=== PATIENT | female | born 1935 | race Hispanic/Latino ===

== ENCOUNTER 2022-06-13 07:49 | Inpatient (IN) | payer OTHER ==
[~2022-06-13] VITALS: Ht 165.1 cm; Wt 101.2 kg
[2022-06-13 08:21] LABS: BASOPHILS % (AUTO) 0.7 % (0.0-5.0); EOSINOPHILS % (AUTO) 3.8 % (0.0-8.0); HEMATOCRIT 42.2 % (36-48); LYMPHOCYTES % (AUTO) 30.9 % (21.0-51.0); MEAN CORPUSCULAR HEMOGLOBIN 30.8 pg (27.0-33.0); MEAN CORPUSCULAR HGB CONC 33.2 g/dL (32.0-36.0); MONOCYTES % (AUTO) 5.7 % (3.0-13.0); NEUTROPHILS % (AUTO) 58.5 % (40.0-77.0); PLATELET COUNT (AUTO) 202 K/uL (130-400); RED BLOOD CELL COUNT(AUTO) 4.54 MIL/uL (4.00-5.50); RED CELL DISTRIBUTION WIDTH 13.2 % (11.0-15.5); WHITE BLOOD COUNT (AUTO) 8.1 K/uL (4.8-10.8)
[2022-06-13] MEDS ORDERED: NITROGLYCERIN 1GM OINT 1 INCH/1GM TD SCH ×2 (08:30→10:30)
[2022-06-13 08:37] LABS: ALBUMIN 3.4 g/dL (3.5-5.0); CREATININE 0.9 mg/dL (0.5-1.5); POTASSIUM 4.6 mmol/L (3.5-5.1); TOTAL PROTEIN, SERUM 7.4 g/dL (6.0-8.3)
[2022-06-13 08:38] LABS: LIPASE < 50 U/L (114-286)
[2022-06-13] MEDS ORDERED: ASPIRIN 325MG TAB PO SCH (10:30)
[2022-06-13 11:25] LABS: APPEARANCE,URINE CLEAR (CLEAR); BILIRUBIN,URINE NEGATIVE (NEGATIVE); COLOR,URINE COLORLESS (YELLOW); GLUCOSE, URINE (UA) NEGATIVE (NEGATIVE); KETONES,URINE NEGATIVE (NEGATIVE); LEUKOCYTE ESTERASE ,URINE NEGATIVE Leu/uL (NEGATIVE); NITRATE,URINE NEGATIVE (NEGATIVE); OCCULT BLOOD,URINE NEGATIVE (NEGATIVE); PROTEIN,URINE NEGATIVE (NEGATIVE); UROBILINOGEN,URINE 0.2 mg/dL (0.2-1.0)
[2022-06-13] MEDS ORDERED: NITROGLYCERIN 50MG/D5W 250ML 250 BOT IV SCH (18:30)
[2022-06-13] MEDS: METOPROLOL TARTRATE 25 MG TAB PO SCH (21:00)
[2022-06-13] MEDS ORDERED: HYDRALAZINE 20MG/ML VIAL IV PRN (22:00)
[2022-06-13] MEDS: ATORVASTATIN 20 MG TABLET PO SCH (22:28)
[2022-06-14] VITALS (28 sets, daily range): BP systolic 97–177; BP diastolic 50–88
[2022-06-14] MEDS ORDERED: KCL 20 MEQ ERTAB PO PRN
[2022-06-14] MEDS ORDERED: POTASSIUM CHLORIDE 20MEQ/100ML 100 ML IV PRN ×2
[2022-06-14] MEDS ORDERED: POTASSIUM CHLORIDE 10% ELIXIR 20 MEQ/15 ML UDCUP PO PRN
[2022-06-14] MEDS ORDERED: MAGNESIUM 2GM PREMIX 50ML 50 ML IV PRN
[2022-06-14] MEDS ORDERED: LIDOCAINE HCL-MPF 1% 2ML VIAL IV PRN ×2
[2022-06-14 04:36] LABS: BASOPHILS % (AUTO) 0.7 % (0.0-5.0); EOSINOPHILS % (AUTO) 3.3 % (0.0-8.0); HEMATOCRIT 41.8 % (36-48); MEAN CORPUSCULAR HEMOGLOBIN 31.2 pg (27.0-33.0); MEAN CORPUSCULAR VOLUME 94.6 fL (79-99); MONOCYTES % (AUTO) 6.8 % (3.0-13.0); NEUTROPHILS % (AUTO) 64.9 % (40.0-77.0); PLATELET COUNT (AUTO) 204 K/uL (130-400); RED BLOOD CELL COUNT(AUTO) 4.42 MIL/uL (4.00-5.50); RED CELL DISTRIBUTION WIDTH 13.3 % (11.0-15.5); WHITE BLOOD COUNT (AUTO) 8.7 K/uL (4.8-10.8)
[2022-06-14 04:49] LABS: CREATININE 0.9 mg/dL (0.5-1.5); POTASSIUM 4.1 mmol/L (3.5-5.1)
[2022-06-14 04:51] LABS: INR 0.94 (0.85-1.15); PROTHROMBIN TIME 10.3 SEC (9.6-11.6)
[2022-06-14 04:52] LABS: ALBUMIN 3.4 g/dL (3.5-5.0); MAGNESIUM 2.3 mg/dL (1.80-2.40); PARTIAL THROMBOPLASTIN TIME 25.7 SEC (26.3-35.5); PHOSPHORUS 3.5 mg/dL (2.5-4.9); TOTAL PROTEIN, SERUM 7.2 g/dL (6.0-8.3)
[2022-06-14] MEDS ORDERED: ACETAMINOPHEN 325 MG TAB PO PRN (08:00)
[2022-06-14] MEDS: METOPROLOL TARTRATE 25 MG TAB PO SCH (08:08)
[2022-06-14] MEDS: ASPIRIN 81MG CHEW TAB PO SCH (08:08)
[2022-06-14] MEDS: LOSARTAN 50 MG TABLET PO SCH (08:08)
[2022-06-14] MEDS ORDERED: LORA10TA7 PO (09:00)
[2022-06-14] MEDS ORDERED: LOSA50TA64 PO (09:00)
[2022-06-14] MEDS ORDERED: ISOS30TA92 PO (09:00)
[2022-06-14] MEDS ORDERED: AEC81 PO (09:00)
[2022-06-14] MEDS ORDERED: LEVO75CA5 PO (09:00)
[2022-06-14] MEDS ORDERED: FURO40TA5 PO (09:00)
[2022-06-14] MEDS ORDERED: LIDOCAINE HCL 400MG/20ML VIAL ONE (11:58)
[2022-06-14] MEDS ORDERED: NITROGLYCERIN 50MG VIAL ONE (11:58)
[2022-06-14] MEDS ORDERED: IOHEXOL 350 MG/ML 100ML INFUS..BTL IV ONE (12:04)
[2022-06-14] MEDS ORDERED: BIVALIRUDIN 250 MG/VIAL IV ONE (12:11)
[2022-06-14] MEDS ORDERED: MIDAZOLAM HCL 1 MG/ML 2ML VIAL ONE (12:11)
[2022-06-14] MEDS ORDERED: FENTANYL CITRATE PF 50 MCG/1 ML 2ML VIAL ONE (12:12)
[2022-06-14] MEDS ORDERED: ATROPINE 1MG SYG IVP ONE (12:14)
[2022-06-14] MEDS ORDERED: IOHEXOL-350 50ML VIAL IV ONE (13:17)
[2022-06-14] MEDS ORDERED: 0.9%NACL 1000ML 1,000 ML IV SCH (14:00)
[2022-06-14] MEDS: ATORVASTATIN 20 MG TABLET PO SCH (19:48)
[2022-06-15 01:24] VITALS: BP 132/80
[2022-06-15 03:50] LABS: BASOPHILS % (AUTO) 0.6 % (0.0-5.0); EOSINOPHILS % (AUTO) 4.4 % (0.0-8.0); HEMATOCRIT 40.9 % (36-48); LYMPHOCYTES % (AUTO) 24.9 % (21.0-51.0); MEAN CORPUSCULAR HEMOGLOBIN 30.9 pg (27.0-33.0); MEAN CORPUSCULAR HGB CONC 32.8 g/dL (32.0-36.0); MEAN CORPUSCULAR VOLUME 94.2 fL (79-99); NEUTROPHILS % (AUTO) 61.7 % (40.0-77.0); PLATELET COUNT (AUTO) 197 K/uL (130-400); RED BLOOD CELL COUNT(AUTO) 4.34 MIL/uL (4.00-5.50); RED CELL DISTRIBUTION WIDTH 13.2 % (11.0-15.5)
[2022-06-15 04:02] VITALS: BP 146/61
[2022-06-15 04:14] LABS: ALBUMIN 3.2 g/dL (3.5-5.0); POTASSIUM 4.4 mmol/L (3.5-5.1); TOTAL PROTEIN, SERUM 6.8 g/dL (6.0-8.3)
[2022-06-15 08:00] VITALS: BP 135/77
[2022-06-15] MEDS: ASPIRIN 81MG CHEW TAB PO SCH (08:57)
[2022-06-15] MEDS: LOSARTAN 50 MG TABLET PO SCH (08:57)
[2022-06-15] MEDS ORDERED: ISOSORBIDE MONO 60MG SR TAB PO SCH (09:00)
[2022-06-15] MEDS ORDERED: LEVOTHYROXINE 75 MCG TABLET PO SCH (09:00)
[2022-06-15] MEDS ORDERED: ATOR20TA65 PO (09:51)
[2022-06-15] MEDS ORDERED: Isosorbide Mono 60MG Sr Tab PO (09:51)
== END 2022-06-15 11:15 | disposition home or self-care (01) | DRG 286 ==
LOC: EDH 07:49 → EDHIP 07:50 → UNDOADMIN 10:18 → EDHIP 10:18 → 2BH 06-14 00:52
PROVIDERS: ADMIT Hospitalist; ATTEND Hospitalist
PROC: 4A023N7 Measurement of Cardiac Sampling and Pressure, Left Heart, Percutaneous Approach (ICD-10-PCS; principal; 2022-06-14)
PROC: B2111ZZ Fluoroscopy of Multiple Coronary Arteries using Low Osmolar Contrast (ICD-10-PCS; 2022-06-14)
DX: I20.0 Unstable angina (principal); I50.33 Acute on chronic diastolic (congestive) heart failure; E66.9 Obesity, unspecified; I11.0 Hypertensive heart disease with heart failure; E03.9 Hypothyroidism, unspecified; I25.2 Old myocardial infarction; Z68.37 Body mass index [BMI] 37.0-37.9, adult; Z79.82 Long term (current) use of aspirin; Z79.899 Other long term (current) drug therapy; Z82.49 Family history of ischemic heart disease and other diseases of the circulatory system; Z90.710 Acquired absence of both cervix and uterus
CPT/HCPCS: 36415; 71045; 80053; 81003; 83690; 83735; 83880; 84100; 84443; 84484; 85025; 85610; 85730; 93005; 93306; 93458; 99156; 99157; C1760; C1769; C1894; G0378; J0360; J0461; J0583; J1644; J2250; J3010; J3475; J3490; Q9967